=== PATIENT | male | born 1940 | race Caucasian/White ===

== ENCOUNTER 2021-07-29 16:43 | Emergency (ER) | payer MEDICARE ==
[~2021-07-29] VITALS: Ht 172.7 cm; Wt 70.0 kg
[2021-07-29 17:43] VITALS: BP 130/88
== END 2021-07-29 23:57 | disposition left against medical advice (07) ==
LOC: ER 16:44
DX: R10.9 Unspecified abdominal pain (principal); R11.10 Vomiting, unspecified; Z53.21 Procedure and treatment not carried out due to patient leaving prior to being seen by health care provider